=== PATIENT | female | born 1965 | race Caucasian/White ===

== ENCOUNTER 2024-04-06 10:51 | Observation (INO) ==
[2024-04-06] MEDS: OPTIRAY 320 125ml IV ONE ×2 (10:56→14:10)
--- NOTE | 2024-04-06 11:11 | Emergency Department Note ---
Impression & Plan Dysarthria ADMIT ED Provider Note HPI: History obtained from patient. The patient is a 58-year-old female with history of bipolar disorder, type 2 diabetes, who presents to the emergency department with a chief complaint of a syncopal episode with acute onset slurred speech. Patient states that at approximately 8:30 AM she was walking in her house when she collapsed. Patient states she was dizzy for several seconds before she collapsed. Patient states that she awoke and received a phone call from her "counselor" with whom she had a 9 AM appointment and this individual had concerned about the way the patient sounded on the phone, stating that her speech was slurred, and the patient states that she believes that her counselor contacted EMS. On arrival here to the ED the patient is drowsy appearing but she is alert to verbal stimuli, she does exhibit slurred speech but otherwise does not exhibit any focal motor deficits, she denies any visual changes, she is alert and oriented x 3 on arrival. Patient denies any alcohol use, denies any excess pain medication use, of note the patient arrives with a right upper extremity sling and states that she had a orthopedic surgical procedure done on March 15 on her right shoulder at an outside hospital. ROS: - Per HPI Differential Diagnosis: Acute ischemic stroke, polysubstance abuse/opioid abuse, alcohol intoxication, intracranial hemorrhage, arrhythmia, seizure, vasovagal event, amongst other potential pathologies. *Outpatient medications and allergy history reviewed. PE: General: Alert HEENT: Normocephalic, trachea midline Eyes: Extraocular eye movement is intact, no scleral erythema Pulmonary: Clear to auscultation bilaterally, no wheezing Cardio: Regular rate and rhythm GI: Abdomen is soft to palpation : No suprapubic tenderness MSK: No evidence of trauma or malformation of the extremities, no edema Skin: No evidence of rash Neuro: Alert, symmetrical facial movements are appreciated, there is no ataxia with [id number] testing on the left upper extremity, patient is in a right arm sling, patient ambulates lower extremities spontaneously without issue, mild dysarthria noted Psychiatric: Cooperative INDEPENDENT INTERPRETATIONS: nurse monitoring: (As interpreted by myself): - An order was placed for continuous cardiac monitoring - Patient was noted to be in sinus rhythm with a rate of 90 EKG: (As interpreted by myself): Rate: 89 Rhythm: Normal sinus rhythm Intervals: Within normal limits ST changes: No ST elevation Time: 11:11 Chest x-ray: (As interpreted by myself): No acute disease NIH STROKE SCALE: 1A: Level of consciousness Alert; keenly responsive 0 1B: Ask month and age Both questions right 0 1C: 'Blink eyes' & 'squeeze hands' Performs both tasks 0 2: Horizontal extraocular movements Normal 0 3: Visual trejo No visual loss 0 4: Facial palsy Normal symmetry 0 5A: Left arm motor drift No drift for 10 seconds 0 5B: Right arm motor drift Amputation/joint fusion 0 6A: Left leg motor drift Drift, hits bed +2 6B: Right leg motor drift Drift, hits bed +2 7: Limb Ataxia No ataxia 0 8: Sensation Normal; no sensory loss 0 9: Language/aphasia Normal; no aphasia 0 10: Dysarthria Mild-moderate dysarthria: slurring but can be understood +1 11: Extinction/inattention No abnormality 0 TOTAL NIH SCORE = 5 Interventions provided in ED: -Aspirin Medical Decision Making: IV was established and lab work obtained, patient was placed on cardiac monitor technician. Patient was taken to the CT scanner prior to my initial assessment. I did discuss the patient's initial presentation with the on-call stroke neurologist at [facility], Dr. Sarmiento, who did not feel TNK was necessary at this time given questionable onset of the patient's symptoms, mild symptoms currently, and the patient syncopal event as this was not fully witnessed and the patient may have had a seizure at onset with the syncope. I discussed this with the patient and she was in agreement. Dr. Sarmiento did recommend full dose aspirin and admission for secondary workup. CT imaging obtained does not show any evidence of any acute abnormalities, no evidence of large vessel occlusion, lab work shows a mild leukocytosis at 10.83, hemoglobin is 8.5, platelet count is normal, CMP shows mild hypokalemia at 3.3, no evidence of acute kidney injury, otherwise no critical findings. Troponin is negative. EKG shows no acute ischemic changes per my interpretation. Alcohol level is negative. Urine drug screen is pending. On my reassessment the patient appears more alert but does remain with some nonspecific symptoms of drowsiness that she reports to me. Unclear source for her syncopal event at this time therefore she will be admitted for further workup given her ongoing dysarthria and syncopal event earlier today. I discussed the patient's presentation with the on-call hospitalist for [facility], Dr. Mays, and the patient was placed for admission in stable condition. Consultants/Discussions held with other healthcare providers: -Stroke neurology, Dr. Sarmiento -Hospitalist, Dr. Mays Disposition discussion held by myself with: -Patient and patient's fianc at the bedside Diagnosis: 1. Strokelike symptoms, acute 2. Syncope and collapse, acute, nonspecific 3. Leukocytosis, acute, mild 4. Anemia, acute, nonspecific 5. Generalized malaise, acute, status post syncopal event Disposition: Admission Peña Gallardo DO Emergency Medicine Past Med/Surg History Problem List (Updated 04/06/24 @ 13:54 by Peña Gallardo DO) Dysarthria (Acute) Anemia Syncope and collapse Helicobacter pylori gastritis COPD, mild Type 2 diabetes mellitus Depressive disorder Bipolar [address] scan, lung Abnormal CT scan, chest Dyspnea on exertion Mild persistent asthma Gastric reflux Chronic cough Cough Dysphagia causing pulmonary aspiration with swallowing COPD, moderate History of tobacco use Chronic lung disease Chronic bronchitis COPD exacerbation Social History (Updated 06/13/22 @ 09:31 by BELA Chowdary) Smoking Status: Current every day smoker Tobacco Type: Cigarettes Age Started Using Tobacco: 16; Age Quit Using Tobacco: 55; packs per day: 1; Feels Safe at Home: Yes Allergies Allergies Allergy/AdvReac Type Severity Reaction Status Date / Time doxycycline AdvReac Mild GI Distress Verified 06/13/22 09:27 Home Meds Home Medications Medication Instructions Recorded Confirmed abaloparatide (Tymlos) 0 mcg subcut DAILY 04/06/24 04/06/24 albuterol sulfate 2.5 mg/3 mL 2.5 mg continuous nebulization Q6H 04/06/24 04/06/24 (0.083 %) solution for nebulization PRN SOB/Wheezing albuterol sulfate 90 mcg/actuation 1 - 2 inh inhalation UD PRN 04/06/24 04/06/24 aerosol inhaler SOB/Wheezing amoxicillin 875 mg-potassium 1 tab PO BID 04/06/24 04/06/24 clavulanate 125 mg tablet aspirin 81 mg tablet,delayed 81 mg PO BID 04/06/24 04/06/24 release atorvastatin 20 mg tablet 20 mg PO DAILY 04/06/24 04/06/24 chlorpromazine 100 mg tablet See Rx Instructions .Route .COMPLEX 04/06/24 04/06/24 chlorpromazine 200 mg tablet See Rx Instructions .Route .COMPLEX 04/06/24 04/06/24 chlorpromazine 25 mg tablet 25 mg PO DAILY PRN Unknown 04/06/24 04/06/24 clonazepam 2 mg tablet 1 mg PO QID 04/06/24 04/06/24 docusate sodium 100 mg capsule 100 mg PO DAILY PRN Constipation 04/06/24 04/06/24 doxepin 100 mg capsule 100 mg PO HS PRN Sleep 04/06/24 04/06/24 fluticasone fur. 100 mcg-umeclid 1 inh inhalation DAILY 04/06/24 04/06/24 62.5 mcg-vilant 25 mcg inhalat.powder (Trelegy Ellipta) gabapentin 300 mg capsule 300 mg PO TID 04/06/24 04/06/24 glycopyrrolate 1 mg tablet 1 mg PO HS 04/06/24 04/06/24 ibandronate 150 mg tablet 150 mg PO MONTHLY 04/06/24 04/06/24 lubiprostone 24 mcg capsule 24 mcg PO BID 04/06/24 04/06/24 metformin 1,000 mg tablet 1,000 mg PO BID 04/06/24 04/06/24 naloxone 4 mg/actuation nasal spray 1 spray intranasal UD PRN Opioid 04/06/24 04/06/24 Overdose omeprazole 40 mg capsule,delayed 40 mg PO DAILY 04/06/24 04/06/24 release oxycodone 5 mg tablet 5 mg PO UD PRN Pain 04/06/24 04/06/24 promethazine 25 mg tablet 25 mg PO Q6H PRN Nausea And 04/06/24 04/06/24 Vomiting topiramate 100 mg tablet 100 mg PO BID 04/06/24 04/06/24 Previous Rx's Medication Instructions Recorded Flutter Valve #1 ea 06/10/21 Results & Data (ED) Vital Signs Vital Signs - 24 hr 04/06/24 11:05 04/06/24 11:18 04/06/24 11:33 Temperature 36.4 C L Temperature Source Oral Pulse Rate 90 92 H 89 Pulse Rate from SpO2 Sensor 90 Respiratory Rate 18 17 Respiratory Effort / Characteristics Non-Labored Respiratory Depth Normal Respiratory Pattern Regular Blood Pressure 136/70 141/62 H Blood Pressure Mean 92 88 Pulse Oximetry 93 94 Oxygen Delivery Method Room Air Sepsis Recent Fever Within 48 Hours No Sepsis New/Unexplained Change in Mental Status N/A Sepsis Action Taken by Nursing No Action Required 04/06/24 12:15 04/06/24 12:33 04/06/24 13:30 Temperature Temperature Source Pulse Rate 85 89 93 H Pulse Rate from SpO2 Sensor 85 87 Respiratory Rate 19 14 24 Respiratory Effort / Characteristics Respiratory Depth Respiratory Pattern Blood Pressure 157/73 H 176/67 H 172/73 H Blood Pressure Mean 101 103 115 Pulse Oximetry 96 94 98 Oxygen Delivery Method Sepsis Recent Fever Within 48 Hours Sepsis New/Unexplained Change in Mental Status Sepsis Action Taken by Nursing Laboratory Data 04/06/24 11:19 04/06/24 11:19 Lab Results 04/06/24 04/06/24 04/06/24 Range/Units 11:13 11:18 11:19 WBC 10.83 H (4.8-10.8) K/ul RBC 3.27 L (4.20-5.40) M/uL Hgb 8.5 L (12.0-16.0) g/dl POC Hgb (12.0-16.0) g/dl Hct 27.8 L (37.0-47.0) % POC Hct (37-47) % MCV 85.0 (80.0-100.0) fL MCH 26.0 (25.0-34.0) pg MCHC 30.6 L (32.0-36.0) g/dL RDW Std Deviation 55.8 H (36.4-46.3) fL RDW Coeff of Williams 17.7 H (11.5-14.5) % Plt Count 358 (130-400) K/uL MPV 8.8 L (9.4-12.4) fL Immature Gran % (Auto) 0.6 % Neut % (Auto) 61.9 % Lymph % (Auto) 26.1 % [place] % (Auto) 10.2 % Eos % (Auto) 1.0 % Baso % (Auto) 0.2 % Neut # (Auto) 6.70 H (1.40-6.50) K/uL Lymph # (Auto) 2.83 (1.20-3.40) K/uL [place] # (Auto) 1.10 H (0.11-0.59) K/uL Eos # (Auto) 0.11 (0.00-0.50) K/uL Baso # (Auto) 0.02 (0.00-0.20) K/uL Immature Gran # (Auto) 0.07 (0.01-0.20) K/uL PT 11.1 (9.0-12.0) Seconds INR 1.0 (0.9-1.1) APTT 23 (21-31) Seconds PTT Ratio 0.9 POC Sodium (135-144) mmol/L Sodium 138 (136-145) mmol/L POC Potassium (3.3-5.0) mmol/L Potassium 3.3 L (3.5-5.1) mmol/L POC Chloride (101-112) mmol/L Chloride 109 H (98-107) mmol/L Carbon Dioxide 24 (21-32) mmol/L POC Total CO2 (24-31) mmol/L Anion Gap 5 (3-11) POC Anion Gap (16-25) mmol/L POC BUN (7-18) mg/dl BUN 13 (6-23) mg/dl Creatinine 1.13 (0.6-1.2) mg/dl POC Creatinine (0.6-1.3) mg/dl Est Cr Clr Drug Dosing 59.3 ml/min Est GFR ( Amer) 61.6 ml/min Est GFR (Non-Af Amer) 53.2 ml/min BUN/Creatinine Ratio 11.5 (10-20) Glucose 142 H (70-99(Fasting)) mg/dl POC Glucose 146 H (70-99) mg/dl POC Glucose (other) (70-99) mg/dl Calcium 8.1 L (8.6-10.3) mg/dl POC Ioniz Calcium Criss (1.12-1.32) mmol/l Magnesium 1.8 (1.7-2.4) mg/dl Iron 19 L (35-150) mcg/dl Unsaturated IBC 306 (155-355) mcg/dl Total Bilirubin 0.3 (0.2-1.0) mg/dl AST 12 L (13-39) U/L ALT 11 (7-52) U/L Alkaline Phosphatase 77 (34-104) U/L Troponin I High Sens 3.2 (0-14) pg/ml Total Protein 5.4 L (6.0-8.3) gm/dl Albumin 3.4 (3.4-5.0) gm/dl Globulin 2.0 L (2.5-4.0) gm/dl Albumin/Globulin Ratio 1.7 (0.9-2) Ethyl Alcohol mg/dL < 10.0 (<10.0) mg/dl Blood Type B Positive Antibody Screen NEGATIVE 04/06/24 Range/Units 11:23 WBC (4.8-10.8) K/ul RBC (4.20-5.40) M/uL Hgb (12.0-16.0) g/dl POC Hgb 8.5 L (12.0-16.0) g/dl Hct (37.0-47.0) % POC Hct 25 L (37-47) % MCV (80.0-100.0) fL MCH (25.0-34.0) pg MCHC (32.0-36.0) g/dL RDW Std Deviation (36.4-46.3) fL RDW Coeff of Williams (11.5-14.5) % Plt Count (130-400) K/uL MPV (9.4-12.4) fL Immature Gran % (Auto) % Neut % (Auto) % Lymph % (Auto) % [place] % (Auto) % Eos % (Auto) % Baso % (Auto) % Neut # (Auto) (1.40-6.50) K/uL Lymph # (Auto) (1.20-3.40) K/uL [place] # (Auto) (0.11-0.59) K/uL Eos # (Auto) (0.00-0.50) K/uL Baso # (Auto) (0.00-0.20) K/uL Immature Gran # (Auto) (0.01-0.20) K/uL PT (9.0-12.0) Seconds INR (0.9-1.1) APTT (21-31) Seconds PTT Ratio POC Sodium 139 (135-144) mmol/L Sodium (136-145) mmol/L POC Potassium 3.2 L (3.3-5.0) mmol/L Potassium (3.5-5.1) mmol/L POC Chloride 104 (101-112) mmol/L Chloride (98-107) mmol/L Carbon Dioxide (21-32) mmol/L POC Total CO2 21 L (24-31) mmol/L Anion Gap (3-11) POC Anion Gap 17.0 (16-25) mmol/L POC BUN 11 (7-18) mg/dl BUN (6-23) mg/dl Creatinine (0.6-1.2) mg/dl POC Creatinine 1.2 (0.6-1.3) mg/dl Est Cr Clr Drug Dosing ml/min Est GFR ( Amer) ml/min Est GFR (Non-Af Amer) ml/min BUN/Creatinine Ratio (10-20) Glucose (70-99(Fasting)) mg/dl POC Glucose (70-99) mg/dl POC Glucose (other) 134 H (70-99) mg/dl Calcium (8.6-10.3) mg/dl POC Ioniz Calcium Criss 1.15 (1.12-1.32) mmol/l Magnesium (1.7-2.4) mg/dl Iron (35-150) mcg/dl Unsaturated IBC (155-355) mcg/dl Total Bilirubin (0.2-1.0) mg/dl AST (13-39) U/L ALT (7-52) U/L Alkaline Phosphatase (34-104) U/L Troponin I High Sens (0-14) pg/ml Total Protein (6.0-8.3) gm/dl Albumin (3.4-5.0) gm/dl Globulin (2.5-4.0) gm/dl Albumin/Globulin Ratio (0.9-2) Ethyl Alcohol mg/dL (<10.0) mg/dl Blood Type Antibody Screen Administered Medications Discontinued Medications Aspirin (Aspirin Chew 324 Mg) 324 mg PO NOW STA Stop: 04/06/24 11:51 Last Admin: 04/06/24 11:58 Dose: 324 mg Documented By: Acetaminophen (Ofirmev) 1,000 mg in 100 mls @ 400 mls/hr IV NOW STA Stop: 04/06/24 12:42 Last Admin: 04/06/24 12:55 Dose: 400 mls/hr Documented By: MR Ioversol (Optiray 320 125ml) 112 ml IV ONCE ONE Stop: 04/06/24 10:56 Last Admin: 04/06/24 10:56 Dose: 112 ml Documented By: ELSA Imaging Data Radiologist's Impression: Head CT 04/06/24 10:50 CT head/brain wo con CLINICAL HISTORY: neuro deficit, acute stroke suspected Technique: Contiguous axial CT images of the head were acquired from the base of the skull to the vertex without intravenous contrast administration. Images were viewed in brain, subdural and bone windows. Automated dose lowering techniques and/or adjustment according to patient size were utilized for this exam. Comparison: None available at the time of this dictation. Findings: The ventricles, basal cisterns, and cerebral sulci are normal. There is no acute intracranial hemorrhage or evidence of acute territorial infarction. Neither mass effect, shift of the midline structures, nor abnormal extra-axial fluid collections are shown. Imaged portions of the paranasal sinuses and mastoid air cells are clear. The orbits appear normal. There are no acute fractures of the calvaria or scalp swelling. Impression: No acute intracranial hemorrhage, no evidence of acute territorial infarction or other acute intracranial disease process. ACT 112: Negative or not required by law. Electronically signed by: George Mi M.D. 04/06/2024 11:27 AM Head CTA 04/06/24 10:50 Neurological deficit. Stroke like symptoms COMPARISON STUDY: Unenhanced CT of the brain performed concurrently on 04/06/2024. TECHNIQUE: Following the IV administration of 112 cc of Optiray 320, CT angiogram of the brain was performed from the skull base to the vertex. Images are reviewed in the axial, sagittal, and coronal planes. 3-D MIPS images are created and assessed. IV contrast was administered without complication. A dose lowering technique was utilized adhering to the principles of ALARA. FINDINGS: Brain parenchyma: There is no evidence of hemorrhage, mass effect, or acute territorial ischemia by CT criteria noting angiographic phase technique. There is no evidence of enhancing mass lesion on the angiogram phase images. No extra- axial fluid collection is seen. Gomez-white matter differentiation is preserved. Ventricles, sulci, and cisterns: Normal in configuration. CT angiogram of the brain: There is atherosclerotic calcification of the cavernous carotid arteries. The internal carotid arteries are widely patent, as are the anterior and middle cerebral arteries. The vertebrobasilar system and posterior cerebral arteries are widely patent. The vertebral arteries are codominant. There is no aneurysm, high-grade stenosis, or focal vessel cutoff identified throughout the intracranial circulation. Dural sinuses: Clear as visualized. Orbits: The bony orbits are intact. The orbital contents are normal as visualized. Sinuses and mastoids: The visualized paranasal sinuses are clear. The mastoid air cells are well pneumatized. Calvarium: Unremarkable. IMPRESSION: 1. There is no evidence of hemorrhage, mass effect, or acute territorial ischemia by CT criteria noting angiographic phase technique. 2. Unremarkable CT angiogram of the brain. ACT 112: Negative or not required by law. Electronically signed by: Mamadou Diez M.D. 04/06/2024 11:37 AM Neck CTA 04/06/24 10:50 CT ANGIOGRAPHY OF THE NECK WITH CONTRAST CLINICAL HISTORY: neuro deficit, acute stroke suspected COMPARISON STUDY: No previous studies for comparison. Technique: CT angiography of the carotid and vertebral arteries was obtained using Optiray and 3D reconstruction on an independent workstation. NASCET criteria was utilized. Automated exposure control was utilized for the study. A dose lowering technique was utilized adhering to the principles of ALARA. CT DOSE: 1299.22 mGy.cm Findings: Emphysema is noted within the visualized portions of the lung apices. There is no cervical lymphadenopathy. There is an 8 mm enhancing nodule within the left parotid gland. The bilateral common carotid, cervical internal carotid and vertebral arteries are patent. There is mild plaque within the bilateral carotid bifurcations without stenosis. There is no aneurysm or dissection within the neck. The bilateral vertebral arteries are patent. IMPRESSION: No stenosis or dissection within the bilateral common carotid, internal carotid or vertebral arteries. ACT 112: Negative or not required by law. Electronically signed by: Alex Salazar M.D. 04/06/2024 11:30 AM Discharge Plan Visit Data Chief Complaint: Stroke Alert Stated Complaint: SYNCOPE, STROKE SX ED Provider: Peña Gallardo Discharge Problem: Dysarthria Forms Stand Alone Forms: [employer] Prescriptions Prescriptions: No Action (DME) Flutter Valve Device See Rx Instructions .Route Qty: 1 0RF Rx Instructions: Use 3 times a day or as directed. glycopyrrolate 1 mg tablet 1 mg PO HS atorvastatin 20 mg tablet 20 mg PO DAILY albuterol sulfate 2.5 mg /3 mL (0.083 %) solution for nebulization 2.5 mg continuous nebulization Q6H PRN (Reason: SOB/Wheezing) chlorpromazine 100 mg tablet See Rx Instructions .ROUTE .COMPLEX Rx Instructions: Take 100mg w/ 200mg to equal 300mg every night at bedtime. omeprazole 40 mg capsule,delayed release(DR/EC) 40 mg PO DAILY aspirin 81 mg tablet,delayed release (DR/EC) 81 mg PO BID doxepin 100 mg capsule 100 mg PO HS PRN (Reason: Sleep) chlorpromazine 25 mg tablet 25 mg PO DAILY PRN (Reason: Unknown) metformin 1,000 mg tablet 1,000 mg PO BID clonazepam 2 mg tablet 1 mg PO QID promethazine 25 mg tablet 25 mg PO Q6H PRN (Reason: Nausea And Vomiting) docusate sodium 100 mg capsule 100 mg PO DAILY PRN (Reason: Constipation) gabapentin 300 mg capsule 300 mg PO TID chlorpromazine 200 mg tablet See Rx Instructions .ROUTE .COMPLEX Rx Instructions: Take 200mg w/ 100mg to equal 300mg every night at bedtime. albuterol sulfate 90 mcg/actuation HFA aerosol inhaler 1 - 2 inh INHALATION UD PRN (Reason: SOB/Wheezing) Rx Instructions: Every 4-6 hours as needed topiramate 100 mg tablet 100 mg PO BID amoxicillin-pot clavulanate 875-125 mg tablet 1 tab PO BID Rx Instructions: Start Date 03/30/24 x10 day supply ibandronate 150 mg tablet 150 mg PO MONTHLY lubiprostone 24 mcg capsule 24 mcg PO BID oxycodone 5 mg tablet 5 mg PO UD PRN (Reason: Pain) Rx Instructions: 5mg by mouth every 4-6 hours as needed naloxone 4 mg/actuation spray,non-aerosol 1 spray INTRANASAL UD PRN (Reason: Opioid Overdose) Tymlos 80 mcg (3,120 mcg/1.56 mL) pen injector 0 mcg SUBCUT DAILY Rx Instructions: Unable to verify with patient/pharmacy at this date/time. Trelegy Ellipta 100-62.5-25 mcg blister with device 1 inh INHALATION DAILY Referrals Referrals: Aleksandar Lemus [Primary Care Provider] -
--- NOTE | 2024-04-06 11:28 | CT Scan Report ---
CT head/brain wo con CLINICAL HISTORY: neuro deficit, acute stroke suspected Technique: Contiguous axial CT images of the head were acquired from the base of the skull to the efrain yony without intravenous contrast administration. Images were viewed in brain, subdural and bone [facility]. Automated dose lowering techniques and/or adjustment according to patient size were utilized for this exam. Comparison: None available at the time of this dictation. Findings: The ventricles, basal cisterns, and cerebral sulci are normal. There is no acute intracranial hemorrh age or evidence of acute territorial infarction. Neither mass effect, shift of the midline structures , nor abnormal extra-axial fluid collections are shown. Imaged portions of the paranasal sinuses and mastoid air cells are clear. The orbits appear normal. There are no acute fractures of the calvaria or scalp swelling. Impression: No acute intracranial hemorrhage, no evidence of acute territorial infarction or other acute intracra nial disease process. ACT 112: Negative or not required by law. Electronically signed by: George Mi M.D. 04/06/2024 11:27 AM
--- NOTE | 2024-04-06 11:31 | CT Scan Report ---
CT ANGIOGRAPHY OF THE NECK WITH CONTRAST CLINICAL HISTORY: neuro deficit, acute stroke suspected COMPARISON STUDY: No previous studies for comparison. Technique: CT angiography of the carotid and vertebral arteries was obtained using Optiray and 3D rec onstruction on an independent workstation. NASCET criteria was utilized. Automated exposure control was utilized for the study. A dose lowering technique was utilized adhering to the principles of ALA RA. CT DOSE: 1299.22 mGy.cm Findings: Emphysema is noted within the visualized portions of the lung apices. There is no cervical lymphadenopathy. There is an 8 mm enhancing nodule within the left parotid gland. The bilateral commo n carotid, cervical internal carotid and vertebral arteries are patent. There is mild plaque within t he bilateral carotid bifurcations without stenosis. There is no aneurysm or dissection within the nec k. The bilateral vertebral arteries are patent. IMPRESSION: No stenosis or dissection within the bilateral common carotid, internal carotid or vertebral arteries . ACT 112: Negative or not required by law. Electronically signed by: Alex Salazar M.D. 04/06/2024 11:30 AM
[2024-04-06 11:34] LABS: Basophils # (auto) 0.02 K/uL (0.00-0.20); Basophils % (auto) 0.2 %; Eosinophils # (auto) 0.11 K/uL (0.00-0.50); Hematocrit (blood only) 27.8 % (37.0-47.0); Hemoglobin 8.5 g/dl (12.0-16.0); Immature Granulocytes # (auto) 0.07 K/uL (0.01-0.20); Immature Granulocytes % (auto) 0.6 %; Lymphocytes # (auto) 2.83 K/uL (1.20-3.40); Lymphocytes % (auto) 26.1 %; Mean Corpuscular Hgb Conc 30.6 g/dL (32.0-36.0); Mean Platelet Volume 8.8 fL (9.4-12.4); Monocytes % (auto) 10.2 %; Neutrophils % (auto) 61.9 %; Platelet Count 358 K/uL (130-400); RDW Coefficient of Variation 17.7 % (11.5-14.5); RDW Standard Deviation 55.8 fL (36.4-46.3); Red Blood Count 3.27 M/uL (4.20-5.40); White Blood Count 10.83 K/ul (4.8-10.8)
--- NOTE | 2024-04-06 11:39 | CT Scan Report ---
Neurological deficit. Stroke like symptoms COMPARISON STUDY: Unenhanced CT of the brain performed concurrently on 04/06/2024. TECHNIQUE: Following the IV administration of 112 cc of Optiray 320, CT angiogram of the brain was pe rformed from the skull base to the vertex. Images are reviewed in the axial, sagittal, and coronal pl anes. 3-D MIPS images are created and assessed. IV contrast was administered without complication. A dose lowering technique was utilized adhering to the principles of ALARA. FINDINGS: Brain parenchyma: There is no evidence of hemorrhage, mass effect, or acute territorial ischemia by C T criteria noting angiographic phase technique. There is no evidence of enhancing mass lesion on the angiogram phase images. No extra-axial fluid collection is seen. Gomez-white matter differentiation is preserved. Ventricles, sulci, and cisterns: Normal in configuration. CT angiogram of the brain: There is atherosclerotic calcification of the cavernous carotid arteries. The internal carotid arteries are widely patent, as are the anterior and middle cerebral arteries. Th e vertebrobasilar system and posterior cerebral arteries are widely patent. The vertebral arteries ar e codominant. There is no aneurysm, high-grade stenosis, or focal vessel cutoff identified throughout the intracranial circulation. Dural sinuses: Clear as visualized. Orbits: The bony orbits are intact. The orbital contents are normal as visualized. Sinuses and mastoids: The visualized paranasal sinuses are clear. The mastoid air cells are well pneu matized. Calvarium: Unremarkable. IMPRESSION: 1. There is no evidence of hemorrhage, mass effect, or acute territorial ischemia by CT criteria noti ng angiographic phase technique. 2. Unremarkable CT angiogram of the brain. ACT 112: Negative or not required by law. Electronically signed by: Mamadou Diez M.D. 04/06/2024 11:37 AM
[2024-04-06 11:47] LABS: Partial Thromboplastin Ratio 0.9; Partial Thromboplastin Time 23 Seconds (21-31); Prothrombin Time 11.1 Seconds (9.0-12.0)
[2024-04-06 11:55] LABS: iSTAT Creatinine 1.2 mg/dl (0.6-1.3); iSTAT Hemoglobin 8.5 g/dl (12.0-16.0); iSTAT Ionized Calcium 1.15 mmol/l (1.12-1.32); iSTAT Potassium 3.2 mmol/L (3.3-5.0)
[2024-04-06 11:57] LABS: Albumin Globulin Ratio 1.7 (0.9-2); Albumin Level 3.4 gm/dl (3.4-5.0); BUN Creatinine Ratio 11.5 (10-20); Bilirubin,Total 0.3 mg/dl (0.2-1.0); Calcium 8.1 mg/dl (8.6-10.3); Creatinine Clr Calc Pharmacy 59.3 ml/min; Est GFR (African American) 61.6 ml/min; Est GFR (Non-African American) 53.2 ml/min; Magnesium 1.8 mg/dl (1.7-2.4); Potassium 3.3 mmol/L (3.5-5.1); Total Protein 5.4 gm/dl (6.0-8.3)
[2024-04-06] MEDS: ASPIRIN CHEW 324 MG PO STA (11:58)
[2024-04-06 12:03] LABS: Troponin I High Sensitivity 3.2 pg/ml (0-14)
[2024-04-06] MEDS: ACETAMINOPHEN 1,000 MG/100 ML VIAL IV STA (12:55)
[2024-04-06] MEDS ORDERED: GLUCOSE 40% GEL 15 GM TUBE PO PRN (13:22)
[2024-04-06] MEDS ORDERED: GLUCOSE 10 TAB/TUBE PO PRN (13:22)
[2024-04-06] MEDS ORDERED: DEXTROSE 50% 50 ML SYRINGE IV PRN (13:22)
[2024-04-06] MEDS ORDERED: GLUCAGON FOR INJ 1 MG VIAL SQ PRN (13:22)
[2024-04-06] MEDS ORDERED: ALUMINUM/MAGNESIUM SUSP 30 ML UDC PO PRN (13:22)
[2024-04-06] MEDS ORDERED: CARBOHYDRATES FOR HYPOGLYCEMIA PO PRN (13:22)
--- NOTE | 2024-04-06 13:22 | History & Physical Report ---
Date of Service April 06, 2024 Assessment & Plan (1) Syncope and collapse: Plan: presents with syncope at home after taking her psychiatric meds , reports decreased fluid intake, has evidence of anemia, acute , related to recent surgery or use of NSAIDS after surgery, patient is somewhat somnolent, but able to provide story CTA brain, neck is negtaive she is benzos, narcotics suspect it played a role in her syncope she was not hypoglycemia nomfocal neuro deficit on exam will start IV fluids e/o PE monitor on tele neuro checks MRI brain if still has symptoms obtain urine drug screen obtain EKG trop (2) Anemia: Plan: acute , blood loss or gastritis due use of steroids, NSAIDS monitor CBC PPI iron study b12, folate (3) Type 2 diabetes mellitus: Plan: insulin sliding scale (4) Depressive disorder: Plan: continue home meds hold if somnolent (5) COPD, moderate: Plan: patient has an evidence of COPD exacerabation on exam was taking antibiotics and steroids at home (6) History of tobacco use: Plan: continues to smoke nicotine patch History of Present Illness Chief Complaint: SYNCOPE, SLURRED SPEECH Primary Care Provider: Aleksandar Lemus The patient is a 58-year-old female with h/o DM type 2, bipolar disorder , recent right shoulder surgery, who presents to the emergency department with a chief complaint of a syncopal episode with acute onset slurred speech. Patient states that at approximately 8:30 AM she was walking in her house when she collapsed. She took her meds prior syncopal episode , Clonopin , Topamax, Metformin , other meds . Patient states she was dizzy for several seconds before she collapsed. Patient states that she awoke and received a phone call from her "counselor" with whom she had a 9 AM appointment and this individual had concerned about the way the patient sounded on the phone, stating that her speech was slurred, and the patient states that her counselor contacted EMS. On arrival here to the ED the patient is drowsy appearing but she is alert to verbal stimuli, she does exhibit slurred speech but otherwise does not exhibit any focal motor deficits, she denies any visual changes, she is alert and oriented x 3 on arrival. Patient denies any alcohol use, denies any excess pain medication use, of note the patient arrives with a right upper extremity sling and states that she had a orthopedic surgical procedure done on March 15 on her right shoulder at an outside hospital.She takes oxycodone for pain, reports having chest pain, she was diagnosed with pneumonia after surgery and was taking Augmentin, steroids, CT brain, CTA brain , neck no acute findings, she reports neck pain and asking for pain meds. She is on oxygen and very wheezy, she continue to smoke. Patient received ASA 325 mg in ER , not a candidate for TPA secondary to recent sx Allergies Allergy/AdvReac Type Severity Reaction Status Date / Time doxycycline AdvReac Mild GI Distress Verified 06/13/22 09:27 Home Medications Medication Instructions Recorded Confirmed Type chlorpromazine 200 mg tablet 400 mg PO HS 06/18/18 12/17/21 History metformin 1,000 mg tablet 1,000 mg PO BID 06/18/18 06/13/22 History paliperidone 9 mg tablet,extended 9 mg PO HS 06/18/18 06/13/22 History release 24 hr (Invega) omeprazole 40 mg capsule,delayed 40 mg PO DAILY #30 caps 08/22/19 06/13/22 Rx release fluoxetine 40 mg capsule 80 mg PO DAILY 07/30/20 06/13/22 History fluvoxamine 100 mg tablet 150 mg PO DAILY 07/30/20 06/13/22 History promethazine 12.5 mg tablet 12.5 mg PO Q6H PRN 07/30/20 06/13/22 History albuterol sulfate 2.5 mg/3 mL 2.5 mg (3 mL) inhalation Q6H #180 03/04/21 06/13/22 Rx (0.083 %) solution for nebulization mL sodium chloride 7 % for 4 ml inhalation BID #240 mL 03/26/21 06/13/22 Rx nebulization Flutter Valve #1 ea 06/10/21 06/13/22 Rx albuterol sulfate 90 mcg/actuation 2 puff inhalation QID PRN 06/10/21 06/13/22 Rx aerosol inhaler shortness of breath or wheezing #6.7 grams diclofenac sodium 75 mg 75 mg PO BID #60 tabs 07/15/21 06/13/22 Rx tablet,delayed release dulaglutide 3 mg/0.5 mL mg subcut .weekly 12/17/21 06/13/22 History subcutaneous pen injector (Trulicity) fluticasone fur. 100 mcg-umeclid 1 inh inhalation DAILY 12/17/21 06/13/22 History 62.5 mcg-vilant 25 mcg inhalat.powder (Trelegy Ellipta) clonazepam 1 mg tablet 0.5 mg PO QID 06/13/22 06/13/22 History topiramate 25 mg tablet (Topamax) 100 mg PO BID 06/13/22 06/13/22 History Past Med/Surg History Problem List (Updated 04/06/24 @ 13:33 by Shanon Mays MD) Anemia Syncope and collapse Helicobacter pylori gastritis COPD, mild Type 2 diabetes mellitus Depressive disorder Bipolar [address] scan, lung Abnormal CT scan, chest Dyspnea on exertion Mild persistent asthma Gastric reflux Chronic cough Cough Dysphagia causing pulmonary aspiration with swallowing COPD, moderate History of tobacco use Chronic lung disease Chronic bronchitis COPD exacerbation Social History (Updated 06/13/22 @ 09:31 by BELA Chowdary) Smoking Status: Current every day smoker Tobacco Type: Cigarettes Age Started Using Tobacco: 16; Age Quit Using Tobacco: 55; packs per day: 1; Feels Safe at Home: Yes Review of Systems Review of Systems: All systems reviewed & are unremarkable except as noted in Subjective Physical Exam Physical Exam: comfortable , not in acute distress Head atraumatic neck supple chest decreased breath sounds b/l , wheezing heart S1 S2 regular abdomen soft, nt, nd, BS present extremities right arm in sling, incision no erythema neuro AAO times 3, no focal deficit Results & Data Results & Data Vital Signs (Past 12 Hours) Vital Signs Temp Pulse Resp BP Pulse Ox O2 Del Method 04/06/24 12:15 85 19 157/73 H 96 04/06/24 11:33 89 17 141/62 H 94 04/06/24 11:18 92 H 04/06/24 11:05 36.4 C L 90 18 136/70 93 Room Air PG Care Time/CCT Total # of Minutes Spent Total Time Spent with Patient: Total time spent is greater than 50% in coordination of care (as documented) at patient's floor/unit and/or counseling patient: Coding Level of Care Code 97476 INT INP/OBS CARE 3/75MIN Diagnoses Syncope and collapse R55 Anemia D64.9 Type 2 diabetes mellitus E11.9 Depressive disorder F32.A COPD, moderate J44.9 History of tobacco use Z87.891
[2024-04-06 14:19] LABS: Folate (Folic Acid),Ser orPlas > 22.30 ng/ml (>5.38)
[2024-04-06 14:20] LABS: Vitamin B12 1271 pg/ml (180-914)
[2024-04-06] MEDS: LACTATED RINGER'S 1,000 ML IV SCH (14:28)
--- NOTE | 2024-04-06 14:47 | CT Scan Report ---
CT SCAN OF THE CERVICAL SPINE CLINICAL HISTORY: Fall. COMPARISON STUDY: No priors. TECHNIQUE: CT scan of the cervical spine is performed from the skull base to the upper thoracic spine . Images are reviewed in the axial, sagittal, and coronal planes. IV contrast was not administered fo r this examination. There is IV contrast present from the concurrently performed CT angiogram of the neck. A dose lowering technique was utilized adhering to the principles of ALARA. FINDINGS: Skeletal structures: The skeletal structures are well mineralized. There is no evidence of fracture o r subluxation involving the cervical spine. Vertebral body height and alignment are maintained. The odontoid process and lateral masses are intact. The atlantoaxial articulation is preserved noting pro ductive degenerative change. The spinous processes appear intact. There is mild multilevel facet arth ropathy. There is a mild and age-indeterminate compression deformity of T3. Intervertebral discs: There is a minimal degenerative disc space narrowing. Central canal: Grossly patent. Soft tissues: The prevertebral and paraspinous soft tissues are within normal limits. Calvarium: The visualized calvarium at the skull base appears intact. Brain parenchyma: Partially visualized brain parenchyma at the skull base is within normal limits. Sinuses and mastoids: The visualized paranasal sinuses are clear. The mastoid air cells are well pneu matized. Lung apices: Emphysematous change is noted. Imaged upper lobe lung parenchyma otherwise appears clear . IMPRESSION: 1. There is no evidence of cervical spine fracture or subluxation. 2. Emphysema. 3. Mild and age indeterminant compression deformity of T3. ACT 112: Negative or not required by law. Electronically signed by: Mamadou Diez M.D. 04/06/2024 2:45 PM
--- NOTE | 2024-04-06 14:57 | CT Scan Report ---
CT ANGIOGRAPHY OF THE CHEST, PULMONARY EMBOLUS PROTOCOL CLINICAL HISTORY: Syncope. Hypoxia. COMPARISON STUDY: Chest CT November 14, 2008. Chest CT June 18, 2018. TECHNIQUE: Following IV administration of 119 mL of Optiray, helical axial images of the chest were o btained utilizing the pulmonary embolus protocol. Maximal intensity projections and sagittal and cor onal reformats were viewed on an independent 3D workstation. IV contrast was administered without co mplication. Automated exposure control was utilized for the study. A dose lowering technique was ut ilized adhering to the principles of ALARA. CT DOSE: 960.79 mGy.cm FINDINGS: No pulmonary emboli are identified. There is no thoracic aortic dissection. Size of the he art is normal. There is no pericardial effusion. There is no thoracic lymphadenopathy. No pneumothora x or pleural effusion is present. No acute fractures within the bony thorax are identified. Scattered mild alveolar opacities within the right lower lobe are present. There is moderate emphysema. Right shoulder arthroplasty is partially imaged. In addition, stranding adjacent to the right shoulder and asymmetric enlargement of the adjacent musculature is partially imaged on this exam and suboptimally assessed due to streak artifact from the hardware. IMPRESSION: 1. No pulmonary emboli identified. 2. Mild right lower lobe alveolar opacities. The findings favor pneumonia or aspiration pneumonitis. 3. Emphysema. 4. Partially visualized right shoulder arthroplasty. Stranding and asymmetric enlargement of the seamus cent musculature may reflect postsurgical change/hemorrhage. Correlation with timing of surgery is re commended. If recent surgery, the findings may reflect expected postoperative change. ACT 112: Negative or not required by law. Electronically signed by: Alex Salazar M.D. 04/06/2024 2:56 PM
--- NOTE | 2024-04-06 14:58 | Electrocardiogram Report ---
Test Reason : Blood Pressure : / mmHG Vent. Rate : 089 BPM Atrial Rate : 089 BPM P-R Int : 160 ms QRS Dur : 100 ms QT Int : 404 ms P-R-T Axes : 058 022 065 degrees QTc Int : 491 ms Normal sinus rhythm Prolonged QT Abnormal ECG When compared with ECG of 18-JUN-2018 13:07, No significant change was found Confirmed by Nikita Price ([id number]) on 04/06/2024 2:58:14 PM Referred By: REFERRED SELF Confirmed By:Nikita Price
--- NOTE | 2024-04-06 15:00 | Electrocardiogram Report ---
Test Reason : Blood Pressure : / mmHG Vent. Rate : 089 BPM Atrial Rate : 089 BPM P-R Int : 170 ms QRS Dur : 092 ms QT Int : 400 ms P-R-T Axes : 068 027 065 degrees QTc Int : 486 ms Normal sinus rhythm Left atrial enlargement Low voltage QRS Prolonged QT Abnormal ECG When compared with ECG of 18-JUN-2018 13:07, No significant change was found Confirmed by Nikita Price ([id number]) on 04/06/2024 3:00:16 PM Referred By: REFERRED SELF Confirmed By:Nikita Price
[2024-04-06] MEDS ORDERED: ALBUTEROL HFA 8 GM INHALER INH PRN (16:54)
[2024-04-06] MEDS: INSULIN ASPART PER UNIT CHARGE SC SCH (17:00)
[2024-04-06] MEDS: ONDANSETRON INJ 2 MG/ML 2 ML VIAL IV PRN (17:31)
[2024-04-06] MEDS: MoRPHine SULFATE 2 MG/ML CARP IV PRN (17:32)
[2024-04-06 18:19] LABS: Amphetamines+Metham, Urine Neg (Neg); Barbiturates, Urine Neg (Neg); Benzodiazepine, Urine Neg (Neg); Cocaine, Urine Neg (Neg); Fentanyl, Urine Neg (Neg); MDMA (Ecstacy), Urine Neg (Neg); Marijuana, Urine Pos (Neg); Methadone, Urine Neg (Neg); Opiate, Urine Neg (Neg); Phencyclidine, Urine Neg (Neg)
[2024-04-06] MEDS: clonazePAM 0.5 MG TAB PO SCH (19:11)
[2024-04-06] MEDS: cefTRIAXone SODIUM 2,000 MG/50 ML BAG IV SCH (19:11)
[2024-04-06] MEDS: ATORVASTATIN 40 MG TAB PO SCH (19:11)
[2024-04-06] MEDS: NICOTINE 21 MG/24 HR TDSY TD SCH (19:11)
[2024-04-06] MEDS: oxyCODONE HCL IR 5 MG TAB (IMMEDIATE RELEASE) PO PRN (19:15)
--- NOTE | 2024-04-06 20:50 | Magnetic Resonance Report ---
MR brain wo con CLINICAL HISTORY: TIA TECHNIQUE: Multiplanar and multisequence MR images of the brain were obtained without intravenous con trast. Comparison: Comparison is made to CTA head and neck 04/06/2024 FINDINGS: No abnormal restricted diffusion is identified. The white matter is unremarkable. The ventricular sys tem is normal in appearance. No mass is seen. There is no mass effect or midline shift. There is no e vidence of acute intraparenchymal hemorrhage. No extra axial fluid collections are seen. The corpus c allosum, pituitary gland, and cerebellar tonsils appear grossly unremarkable. Flow voids of the major intracranial arterial vessels are identified. The imaged portions of the para nasal sinuses, mastoid air cells, and orbits are unremarkable. IMPRESSION: No acute abnormality and in particular no evidence of acute infarct. ACT 112: Negative or not required by law. Electronically signed by: George Mi M.D. 04/06/2024 8:49 PM
[2024-04-06] MEDS: ALBUT/IPRATROP 3MG/0.5MG NEB 3 ML VIAL NEB SCH (21:15)
[2024-04-06] MEDS: PANTOprazole 40 MG in SYRINGE 0 ML IV SCH (22:12)
[2024-04-06] MEDS: TOPIRAMATE 100 MG TAB PO SCH (22:13)
[2024-04-06] MEDS: HEPARIN SOD 5,000 UNIT/0.5 ML VIAL SQ SCH (22:13)
[2024-04-07] MEDS: MAGNESIUM SULFATE / D5W 1 GM/100 ML BAG IV SCH (00:22)
[2024-04-07] MEDS: POTASSIUM CHLORIDE / WTR 10 MEQ/100 ML PLCT IV SCH (00:24)
[2024-04-07 07:33] LABS: BUN Creatinine Ratio 10.1 (10-20); Calcium 8.4 mg/dl (8.6-10.3); Creatinine Clr Calc Pharmacy 66.8 ml/min; Est GFR (African American) 72.3 ml/min; Est GFR (Non-African American) 62.4 ml/min; Potassium 3.9 mmol/L (3.5-5.1)
[2024-04-07] MEDS: FLUoxetine HCL 20 MG CAP PO SCH (07:35)
[2024-04-07] MEDS: FLUTICASONE FUROATE 100MCG 14 PUFFS/INHALER INH SCH (07:36)
[2024-04-07] MEDS: UMECLIDINIUM/VILANTEROL 62.5/25MCG 7 PUFFS/INHALER INH SCH (07:37)
[2024-04-07 07:55] LABS: Estimated Average Glucose 140 mg/dl; Hemoglobin A1C 6.5 % (4.5-5.6)
[2024-04-07] MEDS ORDERED: PANTOprazole 40 MG TAB PO SCH (09:00)
[2024-04-07] MEDS ORDERED: NON-FORMULARY MEDICATION (Fluticasone-Umeclidin-Vilanter [Trelegy Ellipta] 100-62.5-25 mcg INH SCH (09:00)
[2024-04-07 09:02] LABS: Basophils # (auto) 0.03 K/uL (0.00-0.20); Basophils % (auto) 0.4 %; Eosinophils # (auto) 0.22 K/uL (0.00-0.50); Eosinophils % (auto) 2.6 %; Hematocrit (blood only) 28.7 % (37.0-47.0); Hemoglobin 8.7 g/dl (12.0-16.0); Immature Granulocytes # (auto) 0.02 K/uL (0.01-0.20); Immature Granulocytes % (auto) 0.2 %; Lymphocytes % (auto) 38.3 %; Mean Corpuscular Hemoglobin 25.8 pg (25.0-34.0); Mean Corpuscular Hgb Conc 30.3 g/dL (32.0-36.0); Mean Corpuscular Volume 85.2 fL (80.0-100.0); Mean Platelet Volume 9.4 fL (9.4-12.4); Monocytes # (auto) 0.83 K/uL (0.11-0.59); Monocytes % (auto) 9.9 %; Neutrophils # (auto) 4.06 K/uL (1.40-6.50); Neutrophils % (auto) 48.6 %; Platelet Count 376 K/uL (130-400); RDW Coefficient of Variation 17.9 % (11.5-14.5); RDW Standard Deviation 55.7 fL (36.4-46.3); Red Blood Count 3.37 M/uL (4.20-5.40); White Blood Count 8.36 K/ul (4.8-10.8)
[2024-04-07] MEDS: ACETAMINOPHEN 325 MG TAB PO PRN (09:18)
[2024-04-07] MEDS: IRON SUCROSE 200 MG in 0.9 % SODIUM CHLORIDE 100 ML IV ONE (09:52)
--- NOTE | 2024-04-07 12:05 | Discharge Summary ---
Date of Service April 07, 2024 Admission HPI Per Admitting Provider The patient is a 58-year-old female with h/o DM type 2, bipolar disorder , recent right shoulder surgery, who presents to the emergency department with a chief complaint of a syncopal episode with acute onset slurred speech. Patient states that at approximately 8:30 AM she was walking in her house when she collapsed. She took her meds prior syncopal episode , Clonopin , Topamax, Metformin , other meds . Patient states she was dizzy for several seconds before she collapsed. Patient states that she awoke and received a phone call from her "counselor" with whom she had a 9 AM appointment and this individual had co ncerned about the way the patient sounded on the phone, stating that her speech was slurred, and the patient states that her counselor contacted EMS. On arrival here to the ED the patient is drowsy appearing but she is alert to verbal stimuli, she does exhibit slurred speech but otherwise does not exhibit any focal motor deficits, she denies any visual changes, she is alert and oriented x 3 on arrival. Patient denies any alcohol use, denies any excess pain medication use, of note the patient arrives with a right upper extremity sling and states that she had a orthopedic surgical procedure done on March 15 on her right shoulder at an outside hospital.She takes oxycodone for pain, reports having chest pain, she was diagnosed with pneumonia after surgery and was taking Augmentin, steroids, CT brain, CTA brain , neck no acute findings, she reports neck pain and asking for pain meds. She is on oxygen and very wheezy, she continue to smoke. Patient received ASA 325 mg in ER , not a candidate for TPA secondary to recent sx Principal Diagnosis Syncope, iron deficiency anemia, hypokalemia, possible right lower lobe pneumonia Discharge Exam General-alert and oriented x3, no fever, no chills HEENT-head atraumatic and normocephalic, pupils equal and reactive to light, extraocular muscles intact Neck-no lymphadenopathy or thyromegaly, trachea midline Chest-clear to auscultation. No rales, wheezing or rhonchi Cardiac-regular rate and rhythm, normal S1 and S2 Abdomen-normal bowel sounds, no hepatosplenomegaly Extremities-no cyanosis, clubbing, or edema. Right arm in sling after recent right shoulder arthroplasty Neuro-cranial nerves II through XII intact, motor and sensory function within normal limits, strength symmetrical, no focal deficits Psych-normal affect, normal mood Discharge Data Allergies Allergy/AdvReac Type Severity Reaction Status Date / Time doxycycline AdvReac Mild GI Distress Verified 06/13/22 09:27 Consultations 04/06/24 12:19 ED Decision to Admit Stat Ordered Studies 04/06/24 10:50 CT angio head w con Stat CT angio neck with con Stat CT head/brain wo con Stat 04/06/24 12:57 CT angio chest PE protocol Stat 04/06/24 12:59 CT cervical spine w con Stat 04/06/24 17:04 MRI Brain [MR brain wo con] Urgent Hospital Course (1) Syncope and collapse: Probably due to transient hypotension. Now resolved. No palpitations. No evidence of CVA. (2) Anemia: Iron deficiency noted. She received a dose of parenteral iron and will continue with oral ferrous sulfate at discharge. (3) Type 2 diabetes mellitus: ADA diet. Insulin sliding scale (4) Depressive disorder: Stable. Continue home meds (5) COPD, moderate: patient has an evidence of COPD exacerabation on exam on admission. Was taking antibiotics and steroids at home . Will discharge on Levaquin (6) History of tobacco use: continues to smoke . Cessation recommended Plan Home today, April 07, on Levaquin and ferrous sulfate. Total Time Total Time Spent Total Time Spent (In Minutes): 50 minutes Discharge Plan Discharge Items Patient Disposition: Home - Self-Care Reason For Visit: SYNCOPE Discharge Diagnosis: Syncope due to suspected transient hypotension, iron deficiency anemia, possible right lower lobe pneumonia, hypokalemia Activity: Resume your previous activity Non-emergency contact: Primary Care Provider Call non-emergency contact if: your symptoms worsen Follow-up/Referrals: Aleksandar Lemus [Primary Care Provider] - Diet: Carb Consistent or DM2 Addtl Attending Provider Instructions: Take ferrous sulfate twice daily for iron. Take Levaquin antibiotic once a day for 5 days Pending Studies at Discharge: No Stand-Alone Forms: [employer], Smoking Cessation Medications and DC Order Prescriptions: New ferrous sulfate 325 mg (65 mg iron) tablet 325 mg PO BID Qty: 60 0RF levofloxacin 500 mg tablet 500 mg PO DAILY 5 Days Qty: 5 0RF Continued (DME) Flutter Valve Device See Rx Instructions .Route Qty: 1 0RF Rx Instructions: Use 3 times a day or as directed. glycopyrrolate 1 mg tablet 1 mg PO HS atorvastatin 20 mg tablet 20 mg PO DAILY albuterol sulfate 2.5 mg /3 mL (0.083 %) solution for nebulization 2.5 mg continuous nebulization Q6H PRN (Reason: SOB/Wheezing) chlorpromazine 100 mg tablet See Rx Instructions .ROUTE .COMPLEX Rx Instructions: Take 100mg w/ 200mg to equal 300mg every night at bedtime. omeprazole 40 mg capsule,delayed release(DR/EC) 40 mg PO DAILY aspirin 81 mg tablet,delayed release (DR/EC) 81 mg PO BID doxepin 100 mg capsule 100 mg PO HS PRN (Reason: Sleep) chlorpromazine 25 mg tablet 25 mg PO DAILY PRN (Reason: Unknown) metformin 1,000 mg tablet 1,000 mg PO BID clonazepam 2 mg tablet 1 mg PO QID promethazine 25 mg tablet 25 mg PO Q6H PRN (Reason: Nausea And Vomiting) docusate sodium 100 mg capsule 100 mg PO DAILY PRN (Reason: Constipation) gabapentin 300 mg capsule 300 mg PO TID chlorpromazine 200 mg tablet See Rx Instructions .ROUTE .COMPLEX Rx Instructions: Take 200mg w/ 100mg to equal 300mg every night at bedtime. albuterol sulfate 90 mcg/actuation HFA aerosol inhaler 1 - 2 inh INHALATION UD PRN (Reason: SOB/Wheezing) Rx Instructions: Every 4-6 hours as needed topiramate 100 mg tablet 100 mg PO BID ibandronate 150 mg tablet 150 mg PO MONTHLY lubiprostone 24 mcg capsule 24 mcg PO BID oxycodone 5 mg tablet 5 mg PO UD PRN (Reason: Pain) Rx Instructions: 5mg by mouth every 4-6 hours as needed naloxone 4 mg/actuation spray,non-aerosol 1 spray INTRANASAL UD PRN (Reason: Opioid Overdose) Tymlos 80 mcg (3,120 mcg/1.56 mL) pen injector 0 mcg SUBCUT DAILY Rx Instructions: Unable to verify with patient/pharmacy at this date/time. Trelegy Ellipta 100-62.5-25 mcg blister with device 1 inh INHALATION DAILY Discontinued amoxicillin-pot clavulanate 875-125 mg tablet 1 tab PO BID Rx Instructions: Start Date 03/30/24 x10 day supply Discharge Orders: Discharge Order (Routine); Ordered 04/07/24 Ordered By: Aleksandar Napier/Other Patient Handouts: Managing Type 2 Diabetes Admission Data Admit Date/Time: 04/06/24 13:23 Attending Provider: Aleksandar Peterson Admit Provider: Shanon Mays Primary Care Provider: Aleksandar Lemus Providers: Shanon Mays Coding Level of Care Code 56954 INP/OBS DISCH >30 MIN Diagnoses Syncope and collapse R55 Anemia D64.9 Type 2 diabetes mellitus E11.9 Depressive disorder F32.A COPD, moderate J44.9 History of tobacco use Z87.891
[2024-04-09 07:32] LABS: Marijuana Quant, GCMS Urine 715 ng/mL (<5)
== END 2024-04-07 13:30 | disposition home or self-care (01) ==
LOC: ED 10:51 → SUATTDRO 13:23 → EDINP 13:23 → INTOOBSV 13:23 → 2N 22:51